=== PATIENT | male | born 1955 | race Caucasian/White ===

== ENCOUNTER → 2018-11-18 | Outpatient (CLI) | payer BC ==
--- NOTE | 2018-11-18 13:08 | XR ---
EXAMINATION TYPE: XR lumbar spine 2 or 3V DATE OF EXAM: 11/18/2018 CLINICAL HISTORY: Chronic low back pain TECHNIQUE: Frontal and lateral images of the lumbar spine are obtained. COMPARISON: None FINDINGS: There are 5 lumbar type vertebral bodies identified. The lumbar spine shows satisfactory alignment without evidence of acute fracture or dislocation. Vertebral body heights and disk space he ights are within normal limits. Mild degenerative changes of the lumbar spine are seen as interverteb ral disc space narrowing at L5-S1 in facet arthropathy at L4-L5 and L5-S1 with very small anterior os teophytes throughout. Mild dextroscoliosis of the lumbar spine. Moderate atherosclerosis is seen of the abdominal aorta. IMPRESSION: 1. No acute fracture or malalignment is seen in the lumbar spine. 2. Mild dextroscoliosis of the lumbar spine. 3. Mild multilevel degenerative disc disease of the lumbar spine most focal at L4-L5 and L5-S1.
== END | disposition home or self-care (01) ==
LOC: RADXRYALE 11:53
PROVIDERS: ATTEND Family Medicine
DX: M51.36 Other intervertebral disc degeneration, lumbar region (principal); M51.37 Other intervertebral disc degeneration, lumbosacral region; M41.86 Other forms of scoliosis, lumbar region
CPT/HCPCS: 72100

== ENCOUNTER → 2020-01-17 | Outpatient (CLI) | payer BC ==
--- NOTE | 2020-01-17 15:48 | XR ---
EXAMINATION TYPE: XR shoulder complete BILAT DATE OF EXAM: 01/17/2020 COMPARISON: None HISTORY: Bilateral shoulder pain TECHNIQUE: 3 views bilateral shoulders FINDINGS: No acute fractures are evident. There is humeral head spurring from the right humeral head. There is narrowing of the right glenohumeral joint space. Humeral heads articulate with the glenoid. Acute fractures are not identified. IMPRESSION: 1. Degenerative changes right glenohumeral joint space. 2. No acute abnormality left shoulder
== END | disposition home or self-care (01) ==
LOC: RADXRYALE 15:32
PROVIDERS: ATTEND Family Medicine
DX: M25.512 Pain in left shoulder (principal); M19.011 Primary osteoarthritis, right shoulder

== ENCOUNTER 2020-10-23 08:48 | Day surgery (SDC) | payer BC ==
[2020-10-18 13:46] VITALS: BMI 24.4
[2020-10-23] MEDS: LACTATED RINGERS 1,000 ML IV SCH ×2 (09:41→09:57)
[2020-10-23 09:46] VITALS: TEMP 98.2
[2020-10-23 09:46] LABS: Glucose,Whole Blood 99 mg/dL (75-99)
[2020-10-23] MEDS ORDERED: PROPOFOL 10 MG/ML 20 ML VIAL IV ONE (09:59)
--- NOTE | 2020-10-23 10:06 | P.GSHP ---
History of Present Illness H&P Date: 10/23/20 Chief Complaint: colon cancer screening Patient here today for colonoscopy. Last colonoscopy 4-5 years ago. Patient with history of polyps. No bowel complaints. No family history of colon cancer. Past Medical History Past Medical History: Asthma, Hyperlipidemia, Hypertension, Osteoarthritis (OA) Additional Past Medical History / Comment(s): hx colon polyps, states guido torn rotator cuffs, hx of migraine headaches, acne History of Any Multi-Drug Resistant Organisms: None Reported Past Surgical History: Hernia Repair Past Anesthesia/Blood Transfusion Reactions: No Reported Reaction Smoking Status: Former smoker Medications and Allergies Home Medications Medication Instructions Recorded Confirmed Type Albuterol Sulfate [Proair Hfa] 2 puff INHALATION DIRECTED PRN 10/18/20 10/23/20 History Atorvastatin [Lipitor] 80 mg PO DAILY 10/18/20 10/23/20 History Budesonide/Formoterol Fumarate 1 puff INHALATION DAILY PRN 10/18/20 10/23/20 History [Symbicort 80-4.5 Mcg Inhaler] Erythromycin-Benzoyl 1 applic TOPICAL DAILY 10/18/20 10/23/20 History Fenofibrate [Lofibra] 160 mg PO DAILY 10/18/20 10/23/20 History Fluticasone Propion/Salmeterol 1 applic INHALATION BID 10/18/20 10/23/20 History [Wixela 250-50 Inhub] Losartan Potassium 100 mg PO DAILY 10/18/20 10/23/20 History Multivitamins, Thera [Multivitamin 1 tab PO DAILY 10/18/20 10/23/20 History (formulary)] SUMAtriptan SUCCINATE [Imitrex] 50 mg PO DAILY PRN 10/18/20 10/23/20 History Ubidecarenone [Co Q-10] 100 mg PO DAILY 10/18/20 10/23/20 History Zinc 50 mg PO DAILY 10/18/20 10/23/20 History hydroCHLOROthiazide [Hydrodiuril] 25 mg PO DAILY 10/18/20 10/23/20 History Allergies Allergy/AdvReac Type Severity Reaction Status Date / Time No Known Allergies Allergy Verified 10/23/20 09:35 Surgical - Exam Vital Signs Temp Pulse Resp BP Pulse Ox 98.2 F 58 L 18 168/77 97 10/23/20 09:43 10/23/20 09:43 10/23/20 09:43 10/23/20 09:43 10/23/20 09:43 Physical exam: General: Well-developed, well-nourished HEENT: Normocephalic, sclerae nonicteric Abdomen: Nontender, nondistended Extremities: No edema Neuro: Alert and oriented Assessment and Plan (1) Colon cancer screening Narrative/Plan: Will proceed with colonoscopy Current Visit: Yes Status: Acute Code(s): Z12.11 - ENCOUNTER FOR SCREENING FOR MALIGNANT NEOPLASM OF COLON SNOMED Code(s): 030322683
--- NOTE | 2020-10-23 10:15 | P.PCN ---
Date of Procedure: 10/23/20 Procedure(s) Performed: PREOPERATIVE DIAGNOSIS: Colon cancer screening, history of polyps POSTOPERATIVE DIAGNOSIS: Small ascending colon polyp PROCEDURE: Colonoscopy with snare polypectomy ANESTHESIA: MAC SURGEON: Keron Nolasco M.D. SPECIMENS: Polyp ENDOSCOPIC PROCEDURE: The patient was placed on the endoscopy table in the left decubitus position. The Olympus colonoscope was inserted into the anus and passed under direct visualization to the base of the cecum. The appendiceal orifice was visualized. From that point the scope was slowly withdrawn inspecting all surfaces carefully. There were no neoplastic inflammatory or polypoid lesions throughout the cecum. In the ascending colon small polyp was seen and removed using the snare with cautery technique. The remainder of the ascending, transverse, descending, sigmoid and rectum appeared normal . There was no visible diverticulosis noted. Digital rectal examination was normal. The patient was taken to the recovery room in stable condition per anesthesia guidelines. RECOMMENDATIONS: resume diet. Follow-up colonoscopy 5-7 years.
[2020-10-23 10:21] VITALS: RESP 16
[2020-10-23 10:36] VITALS: BP 133/78; PULSE 61
== END 2020-10-23 10:50 | disposition home or self-care (01) ==
LOC: ORWHC2ENDO 08:48
PROVIDERS: ATTEND Surgery
DX: Z12.11 Encounter for screening for malignant neoplasm of colon (principal); D12.2 Benign neoplasm of ascending colon; Z86.010 Personal history of colon polyps; J45.909 Unspecified asthma, uncomplicated; E78.5 Hyperlipidemia, unspecified; I10 Essential (primary) hypertension; M19.90 Unspecified osteoarthritis, unspecified site; Z98.890 Other specified postprocedural states; Z87.891 Personal history of nicotine dependence; Z79.899 Other long term (current) drug therapy
CPT/HCPCS: 88305; 45385; J2704

== ENCOUNTER → 2021-07-24 | Outpatient (CLI) | payer MEDICARE ==
--- NOTE | 2021-07-24 14:36 | XR ---
EXAMINATION TYPE: XR shoulder complete LT DATE OF EXAM: 07/24/2021 CLINICAL HISTORY: Pain for 10 years TECHNIQUE: Three views of the left shoulder are obtained. COMPARISON: Bilateral shoulder x-rays January 17, 2020. FINDINGS: There is no acute fracture/dislocation evident in left shoulder. Left shoulder shows moder ate narrowing with moderate size spur from the medial humeral head extending inferiorly. Moderate to severe narrowing at acromioclavicular joint redemonstrated. Tiny curvilinear calcification along the lateral aspect humeral head could reflect product of a distal calcific tendinitis. The visualized rib s are intact . IMPRESSION: As above.
== END | disposition home or self-care (01) ==
LOC: RADXRYALE 14:07
PROVIDERS: ATTEND Physician Assistant
DX: M25.812 Other specified joint disorders, left shoulder (principal); M25.712 Osteophyte, left shoulder

== ENCOUNTER → 2022-08-07 | Outpatient (CLI) | payer MEDICARE ==
[2022-08-07 16:10] LABS: Partial Thromboplastin Time 24.1 sec (22.0-30.0); Prothrombin Time 10.8 sec (9.0-12.0)
[2022-08-07 22:04] LABS: Basophils # (A) 0.03 X 10*3/uL (0.00-0.10); Basophils % (A) 0.5 %; Eosinophils # (A) 0.36 X 10*3/uL (0.04-0.35); Eosinophils % (A) 6.3 %; HCT 39.7 % (39.6-50.0); HGB 13.5 g/dL (13.0-17.0); Immature Grans, Automated 0.4 %; Lymphocytes # (A) 1.04 X 10*3/uL (0.90-5.00); Lymphocytes % (A) 18.3 %; MCH 30.5 pg (27.0-32.0); MCV 89.6 fL (80.0-97.0); Mean Platelet Volume 9.5 fL (9.5-12.2); Monocytes # (A) 0.49 X 10*3/uL (0.20-1.00); Monocytes % (A) 8.6 %; NRBC Per 100 WBC 0 /100 WBCS (0.0-0.0); Neutrophils # (A) 3.74 X 10*3/uL (1.80-7.70); Neutrophils % (A) 65.9 %; Platelet Count 246 X 10*3/uL (140-440); RBC 4.43 X 10*6/uL (4.40-5.60); RDW 13.1 % (11.5-14.5); WBC 5.68 X 10*3/uL (4.50-10.00)
[2022-08-08 00:28] LABS: African American GFR (CKD) 83.4 (60.0-200.0); Albumin 4.7 g/dL (3.8-4.9); Albumin/Globulin Ratio 2.18 (1.60-3.17); Anion Gap 13.4 mmol/L (10.00-18.00); BUN/Creat Ratio 30.56 Ratio (12.00-20.00); Blood Urea Nitrogen 32.7 mg/dL (9.0-27.0); Calcium 9.7 mg/dL (8.7-10.3); Carbon Dioxide 24.1 mmol/L (20.0-27.5); Globulin 2.1 g/dL (1.6-3.3); Potassium 4.3 mmol/L (3.5-5.5); Total Bilirubin 0.7 mg/dL (0.30-1.20); Total Protein 6.8 g/dL (6.2-8.2)
== END | disposition home or self-care (01) ==
LOC: LABWHC1 12:46
PROVIDERS: ATTEND Family Medicine
DX: Z01.812 Encounter for preprocedural laboratory examination (principal); M25.511 Pain in right shoulder
CPT/HCPCS: 36415; 80053; 85025; 85610; 85730; 86900; 86901; 87070

== ENCOUNTER → 2023-11-16 | Outpatient (CLI) | payer MEDICARE ==
--- NOTE | 2023-11-16 14:33 | XR ---
EXAMINATION TYPE: XR sacrum coccyx DATE OF EXAM: 11/16/2023 CLINICAL HISTORY: pain TECHNIQUE: Three views of the sacrum and coccyx are submitted. COMPARISON: none Sacral alae appear symmetric. No evidence for fracture or bony lesion. Sacroiliac joints are within normal limits. Visualized coccygeal segments are free of fracture or lesion. IMPRESSION: Normal study
== END | disposition home or self-care (01) ==
LOC: RADXRYALE 14:08
PROVIDERS: ATTEND Physician Assistant
DX: M53.3 Sacrococcygeal disorders, not elsewhere classified (principal)
CPT/HCPCS: 72220